=== PATIENT | female | born 1975 | race Caucasian/White ===

== ENCOUNTER → 2021-02-14 09:27 | Outpatient (BNVA) | payer SELFPAY | DX: Z76.89 Persons encountering health services in other specified circumstances (principal) ==

== ENCOUNTER → 2023-01-12 08:08 | Outpatient (BNVA) | payer SELFPAY | DX: Z04.9 Encounter for examination and observation for unspecified reason (principal) ==

== ENCOUNTER 2024-06-27 18:12 | Emergency (ER) | payer OTHER, SELFPAY ==
[2024-06-27 18:18] VITALS: BP 128/78; PULSE 78; RESP 16; TEMP 36.2; O2SAT 100; BMI 23.3
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
[2024-06-27 19:13] LABS: MANUAL DIFF FLAG NO
[2024-06-27 19:15] LABS: Appearance Urine Clear; Basophils Percent Auto 0.5 % (0-2); Color Urine Yellow; Eosinophils Absolute Auto 0.1 X10*3/uL (0.0-0.4); Eosinophils Percent Auto 1.1 % (0-4); Glucose Urine UA Negative (Negative); Hematocrit 38.4 % (37.0-47.0); Hemoglobin 13.8 g/dl (12.0-16.0); Imm Gran Abs Auto 0.01 X10*3/uL (0.00-0.03); Imm Gran Pct Auto 0.2 % (0.0-0.4); Leukocyte Esterase Urine Negative (Negative); Lymphocytes Absolute Auto 1.4 X10*3/uL (1.2-4.9); Lymphocytes Percent Auto 23.1 % (20-40); Mean Corpuscular HGB Conc 35.9 g/dl (31.0-35.0); Mean Corpuscular Hemoglobin 30.9 pg (27.0-33.0); Mean Corpuscular Volume 85.9 fL (80.0-98.0); Mean Platelet Volume 9.6 fL (9.4-12.3); Monocytes Absolute Auto 0.5 X10*3/uL (0.1-1.2); Monocytes Percent Auto 8.3 % (2-11); Neutrophils Absolute Auto 4.1 x10*3/uL (2.0-8.3); Neutrophils Percent Auto 66.8 % (45-73); Nitrite Urine Negative (Negative); Platelet Count 169 X10*3/uL (160-400); Red Blood Count 4.47 X10*6/uL (4.20-5.50); Specific Gravity - Urine <= 1.005 (1.005-1.025); Urine Blood Negative (Negative); Urine Ketones Negative (Negative); Urine Protein Negative (Neg-Trace); White Blood Count 6.2 X10*3/uL (4.8-10.8)
[2024-06-27 19:16] LABS: UPreg QC Valid YES; Urine Pregnancy NEGATIVE (NEGATIVE)
[2024-06-27 19:30] LABS: Alanine Aminotransferase 20 U/L (0-31); Aspartate Amino Transferase 23 U/L (5-31); Creatinine Clr Calc Pharmacy 99.5; Estimated Glomerular Filt Rate > 60
[2024-06-27 19:35] LABS: Alanine Aminotransferase 25 U/L (0-31); Albumin Level 4.3 g/dL (3.5-5.0); Alkaline Phosphatase 54 U/L (39-117); Anion Gap 9 (12-20); Aspartate Amino Transferase 24 U/L (5-31); Bilirubin Total 0.3 mg/dL (0.0-1.0); Blood Urea Nitrogen 14 mg/dL (9-16); Calcium 9.4 mg/dL (8.4-10.2); Carbon Dioxide 25 mmol/L (22-29); Chloride 108 mmol/L (96-108); Estimated Glomerular Filt Rate > 60; Glucose Random 81 mg/dL (60-115); Potassium 3.8 mmol/L (3.3-5.1); Sodium 138 mmol/L (135-145); Total Protein 7.2 g/dL (6.5-8.0)
[2024-06-27 19:37] LABS: HCG Quantitative < 2 mIU/mL
[2024-06-27] MEDS: Ondansetron ODT 4 MG TAB.RAPDIS TRANSLINGU (19:39)
[2024-06-27] MEDS: Post Exposure Medication Kit 1 KIT PO (19:40)
[2024-06-27 20:11] LABS: Ethanol < 10 mg/dL
[2024-06-27] MEDS: SANE metroNIDAZOLE 500 MG TABLET KIT PO (21:18)
[2024-06-27] MEDS: SANE Doxycycline Monohydrate 100 MG CAPSULE PO (21:18)
[2024-06-27 21:52] LABS: Amphetamine Screen Urine Not Detected (Not Detect); Barbiturates, Urine Not Detected (Not Detect); Benzodiazepines Screen Urine Not Detected (Not Detect); Buprenorphine Scr Not Detected (Not Detect); Cannabinoid Screen Urine Not Detected (Not Detect); Cocaine Screen Urine Not Detected (Not Detect); Fentanyl, urine Not Detected (Not Detect); Methadone Screen, Urine Not Detected (Not Detect); Opiate Screen Urine Not Detected (Not Detect); Oxycodone Screen Urine Not Detected (Not Detect); Phencyclidine Screen Urine Not Detected (Not Detect)
[2024-06-27] MEDS: Fluconazole 150 MG TABLET PO (23:10)
[2024-06-27] MEDS: LORazepam 1 MG TABLET PO (23:32)
[2024-06-27 23:33] VITALS: BP 128/78; PULSE 78; RESP 16; TEMP 36.2; O2SAT 100
[2024-06-28 02:24] LABS: CT PCR NOT DETECTED (Not Detect.); NG PCR NOT DETECTED (Not Detect.)
[2024-06-28 09:59] LABS: HBS Num1 477.05 mIU/mL (0-7.99); HIV AB/AG Nonreactive (Nonreactive); HIV Num 1 0.09 S/CO (0.00-0.99); Hepatitis B Surface Antigen Negative (Negative); ~HepC Num1 2.39 S/CO (0.00-0.79); ~Hepatitis B Surface Antibody REACTIVE (Nonreactive); ~Hepatitis C Antibody Reactive (Nonreactive)
[2024-06-28 10:10] LABS: Syphilis Screen Nonreactive (Nonreactive)
[2024-06-28 11:31] LABS: Bacterial Vaginosis PCR NEGATIVE (Negative); Candida Group PCR NOT DETECTED (Not Detect); Candida glab krusei PCR NOT DETECTED (Not Detect); Trichomonas vaginalis PCR NOT DETECTED (Not Detect)
== END 2024-06-27 23:33 | disposition home or self-care (01) ==
PROVIDERS: Physician Assistant; Emergency Provider Emergency Medicine; PCP Nurse Practitioner Family
DX: T76.21XA Adult sexual abuse, suspected, initial encounter (principal); R10.2 Pelvic and perineal pain; Z51.81 Encounter for therapeutic drug level monitoring; Z20.2 Contact with and (suspected) exposure to infections with a predominantly sexual mode of transmission; Z79.899 Other long term (current) drug therapy
CPT/HCPCS: 36415; 80053; 80307; 81003; 81025; 81515; 82565; 84450; 84460; 84702; 85025; 86706; 86780; 86803; 87340; 87389; 87491; 87591; 99283; 99285